=== PATIENT | male | born 1960 | race Caucasian/White ===

== ENCOUNTER 2021-07-13 14:10 | Day surgery (SDC) | payer OTHER, SELFPAY ==
[~2021-07-13] VITALS: Ht 182.9 cm; Wt 90.3 kg
[~2021-07-13 14:10] MED LIST: CEFAZOLIN SOD 2 GM in D5W 50 ML IV ONE
[2021-07-13] MEDS ORDERED: LR 1,000 ML IV SCH (19:30)
[2021-07-13] MEDS ORDERED: KETOROLAC TROMETHAMINE 30 MG VIAL IVP PRN (19:30)
[2021-07-13] MEDS ORDERED: HYDROmorphone 1 MG/ML INJ. CARTRIDGE IVP PRN (19:30)
[2021-07-13] MEDS ORDERED: HYDROmorphone 2 MG/ML VIAL IVP PRN (19:30)
[2021-07-13] MEDS ORDERED: ONDANSETRON HCL 4 MG/2 ML VIAL IVP PRN (19:30)
[2021-07-13] MEDS ORDERED: MIDAZOLAM HCL 5 MG/ML VIAL (VERSED) IV ONE (19:56)
[2021-07-13] MEDS ORDERED: PHENYLEPHRINE HCL 10 MG/ML VIAL (NEOSYNEPHRINE) ONE (19:56)
[2021-07-13] MEDS ORDERED: SEVOFLURANE 15 MIN GAS INH ONE (19:56)
[2021-07-13] MEDS ORDERED: WATER FOR IRRIGATION,STERILE 1,000 ML IRRIG.SOLN IR ONE (19:56)
[2021-07-13] MEDS ORDERED: PROPOFOL 200MG/ 20ML VIAL (DIPRIVAN) IV ONE (19:56)
[2021-07-13] MEDS ORDERED: NS IRRIG SOLN 1000 ML IR ONE (19:56)
[2021-07-13] MEDS ORDERED: LR 1,000 ML IV.SOLN IV ONE (19:56)
[2021-07-13] MEDS ORDERED: MEPERIDINE HCL/PF 25 MG/ML DISP.SYRIN ONE (19:56)
[2021-07-13] MEDS ORDERED: METOCLOPRAMIDE HCL 10 MG/2 ML VIAL ONE (19:56)
[2021-07-13] MEDS ORDERED: BUPIVACAINE /EPINEPHRINE/PF 0.25% 30 ML VIAL INJ ONE (19:56)
[2021-07-13] MEDS ORDERED: ONDANSETRON HCL 4 MG/2 ML VIAL ONE (19:56)
[2021-07-13] MEDS ORDERED: GLYCOPYRROLATE 0.2 MG/ML VIAL ONE (19:56)
[2021-07-13] MEDS ORDERED: fentaNYL CITRATE 250 MCG/5 ML AMP ONE (19:56)
[2021-07-13] MEDS ORDERED: ROCURONIUM BROMIDE 10 MG/ML (ZEMURON) ONE (19:56)
[2021-07-13] MEDS ORDERED: LIDOCAINE PF 2%, 40 MG/2 ML AMP INJ ONE (19:56)
[2021-07-13] MEDS ORDERED: MEPERIDINE HCL/PF 25 MG/ML DISP.SYRIN IVP ONE (20:00)
[2021-07-13] MEDS ORDERED: IBUPROFEN 400 MG TABLET PO PRN (20:00)
[2021-07-13 22:50] VITALS: BP_SYST 131
== END 2021-07-13 23:20 | disposition home or self-care (01) ==
LOC: SDS 14:10 → SMU 14:11 → SDS 23:20
PROVIDERS: ATTEND Surgery
DX: K40.20 Bilateral inguinal hernia, without obstruction or gangrene, not specified as recurrent (principal); K42.9 Umbilical hernia without obstruction or gangrene; E78.5 Hyperlipidemia, unspecified; F32.0 Major depressive disorder, single episode, mild; E03.9 Hypothyroidism, unspecified; Z20.822 Contact with and (suspected) exposure to COVID-19; Z79.899 Other long term (current) drug therapy; Z88.8 Allergy status to other drugs, medicaments and biological substances
CPT/HCPCS: 36415; 49650; 49652; 87426; 88302; C1727; C1781; J0690; J2001; J2175; J2250; J2370; J2405; J2704; J2765; J3010; J3490 ×2; J7060; J7120; U0003